=== PATIENT | female | born 1985 | race Caucasian/White ===

== ENCOUNTER 2021-12-18 10:42 | Emergency (ER) | payer BC, MEDICAID, SELFPAY ==
[2021-12-18 10:59] VITALS: BP 147/92; PULSE 79; RESP 18; O2SAT 100; BMI 44.9
[2021-12-18 11:20] VITALS: BP 147/92; PULSE 79; RESP 18; TEMP 36.7; O2SAT 100; BMI 44.9
[2021-12-18 11:43] VITALS: BP 147/92; PULSE 79; RESP 18; TEMP 36.7; O2SAT 100
--- NOTE | 2021-12-18 11:59 | HMH.EDUTC ---
[facility] – [place] Disposition Clinical Impression: Dog bite Qualifiers: Encounter type: initial encounter Qualified Code(s): W54.0XXA - Bitten by dog, initial encounter Disposition: Home, Self-Care Condition on Discharge: Good Instructions: DI for Laceration Repair, DI for Animal Bites, DI for Dog Bite Additional Instructions: Suture instructions: You have required stitches today. Please read the following instructions so you know how to care for them: 1. Keep wound area dry for the first 24 hours. 2 May clean gently with mild soap and water, after 48 hours to prevent crusting over suture knots. 3. You may shower if your provider gives permission but do not take a bath until the skin is healed.. 4. Never leave a wet dressing or Band-Aid on your stitches as this allows bacteria to reach the area and may cause infection. Band-aids can cause the wound to sweat and not recommended to wear for long periods of time Watch for signs of infection: Increasing redness, tenderness or warmth around the suture site Unusual swelling around the site Appearance of pus around each suture or any red streaks Fever If you develop any of the above signs or symptoms of infection, Follow up with Family Physician immediately 5. Suture removal in _7-10___days 6. Return to [facility] or follow up with family doctor for removal. This can be done by any medical provider during regular hours on Saturday through Saturday, by appointment. Prescriptions: Amoxicillin/Potassium Clav [Amox-Clav 875-125 mg Tablet] 1 tab PO BID #14 tab Transmission Status: Pending to [facility] Referrals: Provider,Referral, MD [Primary Care Provider] - As needed Time of Disposition: 12:04 Medical Decision Making - Brooks Inquiry Pt receiving controlled substance: No Brooks was queried for this patient: No Vital Signs: 12/18/21 10:59 12/18/21 11:20 12/18/21 11:43 Temperature 98.0 F 98.0 F Temperature Source Oral Pulse Rate 79 Pulse Rate [Left Radial] 79 79 Respiratory Rate 18 18 18 Blood Pressure 147/92 H Blood Pressure [Right Arm] 147/92 H 147/92 H Blood Pressure Mean [Right Arm] 110 110 Blood Pressure Source [Right Arm] Automatic Cuff Automatic Cuff Blood Pressure Position [Right Arm] Sitting Sitting 02 Sat by Pulse Oximetry 100 100 Oxygen Delivery Method Room Air Room Air Orders (Tests/Meds): ED MEDICATIONS Discontinued Medications Generic Name Dose Route Start Last Admin Trade Name Rosa PRN Reason Stop Dose Admin Tetanus/Reduced Diphtheria/Acell Pertussis 0.5 ml 12/18/21 11:29 12/18/21 11:35 Tet/Diphth/Pert-Adult 0.5ml Syringe IM 12/18/21 11:30 0.5 ml .ONCE ONE Administration [facility] – [place] HPI - General Stated complaint: laceration on upper right arm Time Seen by Provider: 12/18/21 11:30 Mode of Arrival: Ambulatory Source of Information: Patient Limitations: No Limitations Description of Symptoms (Recalled from Triage Doc. by RN): PATIENT C/O DOG BITE TO RIGHT UPPER ARM AND SCRATCHES TO BILATERAL UPPER ARM. NEEDS TDAP HEENT Symptoms (Recalled from RN notes): No Resp Symptoms (Recalled from RN notes): No Skin Symptoms (Recalled from RN notes): Yes MS Symptoms (Recalled from RN notes): No Functional Status (Recalled from RN notes): WNL - History of Present Illness Provider Complaint: Patient states that she was attacked by stray dog trying to protect her dog States that she was bitten and sratched several times on bilateral arms but has large gash on her right upper arm and needed to get tetanus States that it has been around 12 hours since injury - Related Data Previous Rx's Medication Instructions Recorded Amoxicillin/Potassium Clav 1 tab PO BID #14 tab 12/18/21 [Amox-Clav 875-125 mg Tablet] Allergies Allergy/AdvReac Type Severity Reaction Status Date / Time No Known Allergies Allergy Verified 12/18/21 11:29 - Worker's Comp Is this a Worker's Comp case?: No [facility] History - Hepatitis A Screen
== END 2021-12-18 12:11 | disposition home or self-care (01) ==
PROVIDERS: Emergency Provider Nurse Practitioner
DX: S41.111A Laceration without foreign body of right upper arm, initial encounter (principal); Z23 Encounter for immunization; W54.0XXA Bitten by dog, initial encounter
CPT/HCPCS: 12001; 90471; 90715; 99213; G0463